=== PATIENT | male | born 1990 | race American Indian/Alaskan Native ===

== ENCOUNTER 2018-09-12 20:44 | Emergency (ER) | payer OTHER ==
[2018-09-12 21:20] VITALS: BP 129/84
--- NOTE | 2018-09-12 22:22 | Emergency Department Report ---
Blank Doc - Documentation Documentation: 28 y o male presents with small lac to forehead ACC eval
[2018-09-13] MEDS ORDERED: ULTRAM PO ONE (00:49)
[2018-09-13] MEDS ORDERED: BOOSTRIX IM ONE (00:49)
--- NOTE | 2018-09-13 01:19 | Emergency Department Report ---
ED Laceration HPI - HPI Chief Complaint: Laceration/Recheck/Suture Stated Complaint: FOREHEAD LAC Time Seen by Provider: 09/12/18 22:21 Severity: mild Tetanus Status: Not up to Date Laceration Symptoms: Yes Pain, No Foreign Body Sensation, No Numbness, No Weakness Other History: 28 y o male presents with small lac to forehead, there was no loc no headache dizziness no lightheadedness no n/v no active bleeding ED Review of Systems ROS: Stated complaint: FOREHEAD LAC Other details as noted in HPI Constitutional: denies: chills, fever Eyes: denies: eye pain, eye discharge, vision change ENT: denies: ear pain, throat pain Respiratory: denies: cough, shortness of breath, wheezing Cardiovascular: denies: chest pain, palpitations Endocrine: no symptoms reported Gastrointestinal: denies: abdominal pain, nausea, diarrhea Genitourinary: as per HPI Musculoskeletal: denies: back pain, joint swelling, arthralgia Skin: other (small forehead laceration ). denies: rash, lesions Neurological: denies: headache, weakness, numbness, paresthesias, confusion, v ertigo Psychiatric: denies: anxiety, depression Hematological/Lymphatic: denies: easy bleeding, easy bruising ED Past Medical Hx - Past Medical History Previous Medical History?: No - Surgical History Past Surgical History?: No - Social History Smoking Status: Current Every Day Smoker Substance Use Type: None - Medications Home Medications: Home Medications Medication Instructions Recorded Confirmed Last Taken Type Ibuprofen 800 mg PO TID PRN #30 tablet 09/13/18 Unknown Rx Laceration Physical Exam - Exam General: right forehead laceration horizontal less than 1 cm superficial mild swelling no bleeding, Vital signs noted. No distress. Alert and acting appropriately. Wound Length (cm): 1 (less than 2 cm ) Laceration Location: Head Laceration Exam: Yes Normal Distal CMS, No Foreign Body, No Exposed Tendon, Vessel, or Nerve, No Tendon Injury ED Course Vital Signs 09/12/18 21:16 Temperature 97.4 F L Pulse Rate 77 Respiratory 16 Rate Blood Pressure 129/84 O2 Sat by Pulse 100 Oximetry - Laceration /Wound Repair Right Frontal Wound Location: face (right forehead) Wound Length (cm): 1 (less than ) Wound's Depth, Shape: superficial Wound Explored: clean Irrigated w/ Saline (ccs): 10 Betadine Prep?: Yes Volume Anesthetic (ccs): 0 (none required ) Wound Debrided: not required Wound Repaired With: Steri-strips Number of Sutures: 1 Layer Closure?: No Progress: small forehead laceration supreficial less than 1 cm no bleeding wound cleaned with 10 cc sterile sline and alcohol swabs wound closed with steristrip x 1 all bleeding is controlled edges well approximated pt given tetanus shot, pt given wound care instructions pt verbalized agreement and understanding of discharge pt tolerated procedure with minimal distress. ED Medical Decision Making - Medical Decision Making laceration forehead , see procedure note for laceration repair, all bleeding is controlled , steristrips intact pt tolerated procedure with minimal distress, pt given wound care instructions, pt will follow up with pcp in 2 days for wound check , pt given tetanus booster at this time, pt for dc to home in stable condition at this time. Critical care attestation.: If time is entered above; I have spent that time in minutes in the direct care of this critically ill patient, excluding procedure time. ED Disposition Clinical Impression: Laceration of forehead without complication Qualifiers: Encounter type: initial encounter Qualified Code(s): S01.81XA - Laceration without foreign body of other part of head, initial encounter Disposition: DC-01 TO HOME OR SELFCARE Is pt being admited?: No Does the pt Need Aspirin: No Condition: Stable Instructions: Laceration (ED) Prescriptions: Ibuprofen 800 mg PO TID PRN #30 tablet PRN Reason: Pain , Severe (7-10) Referrals: SONALI PHILLIPS MD [Staff Physician] - 3-5 Days Forms: Work/School Release Form(ED) Time of Disposition: 01:28
== END 2018-09-13 01:35 | disposition home or self-care (01) ==
LOC: ED 20:44
DX: S01.81XA Laceration without foreign body of other part of head, initial encounter (principal); F17.200 Nicotine dependence, unspecified, uncomplicated; X58.XXXA Exposure to other specified factors, initial encounter; Y93.89 Activity, other specified; Y92.89 Other specified places as the place of occurrence of the external cause; Y99.8 Other external cause status
CPT/HCPCS: 90471; 90715; 99282